=== PATIENT | female | born 2005 | race Caucasian/White ===

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

== ENCOUNTER → 2024-01-26 | Outpatient (CLI) | payer OTHER ==
--- NOTE | 2024-01-27 22:01 | US ---
EXAMINATION TYPE: US OB anatomy transabd DATE OF EXAM: 01/26/2024 COMPARISON: NONE CLINICAL INDICATION: Female, 18 years old with history of Z34.90 ENCNTR FOR SUPRVSN OF NORMAL PREGNAN CY, UNS; Anatomy TECHNIQUE: Transabdominal (TA) EXAM MEASUREMENTS: Pt is unsure of exact due date GESTATIONAL AGE / DATING Physician Established: (23 weeks/5 days) EDC: 05/19/24 Dates by First Scan: No previous this is first scan Dates by Current Scan for: (21 weeks/6 days) EDC: 06/01/24 SURVEY IUP: Single PLACENTA: Anterior PREVIA: No previa VÍCTOR: 14.2 cm Normal CERVICAL LENGTH (transabdominal: norm > 3.0cm): 3.2 cm BIOMETRY PRESENTATION: Vertex LIE: Longitudinal BPD: 5.1 cm 21 weeks / 4 days HC: 19.4 cm 21 weeks / 5 days AC: 17.2 cm 22 weeks / 2 days FL: 3.7 cm 21 weeks / 6 days ESTIMATED WEIGHT IN GRAMS: 462 grams ESTIMATED WEIGHT IN LBS/OZ: 1 lbs. 0 oz. WEIGHT PERCENTAGE BASED ON ESTABLISHED DATE: 2 % HC/AC: 1.13 Normal FL/AC: 22% Normal HEART RATE: 144 bpm RHYTHM: Normal ANATOMY SEEN (within normal limits): * Lateral Vent (< 1 cm) 0.58 cm * Cisterna Magna (< 1.1 cm) 0.25 cm * Nuchal Fold (< 0.6 cm) 0.33 cm * Cerebellum (varies with age) 2.09 cm Choroid Plexus (bilateral) Midline Falx Cavus Septi Pellucidi Four Chamber Heart Outflow tracts: LVOT/RVOT Stomach Situs Nose / Lips Diaphragm Kidneys (bilateral) Bladder Cord Insert Three Vessel Cord Longitudinal Spine Transverse Spine Arms (bilateral) Legs (bilateral) IMPRESSION: 1. Single intrauterine gestation estimated at 21 weeks 6 days gestation. Cardiac activity measures 14 4 bpm.
== END | disposition home or self-care (01) ==
LOC: RADUSWWP 16:11
PROVIDERS: ATTEND Obstetrics & Gynecology
DX: Z34.90 Encounter for supervision of normal pregnancy, unspecified, unspecified trimester (principal)
CPT/HCPCS: 76811

== ENCOUNTER 2024-03-29 20:01 | Emergency (ER) | payer OTHER ==
[2024-03-29 20:07] VITALS: BP 117/64; RESP 18; TEMP 98.2
--- NOTE | 2024-03-29 21:56 | ED ---
General Adult HPI - General Chief complaint: Recheck/Abnormal Lab/Rx Stated complaint: preg 33wks, no taste, body aches Time Seen by Provider: 03/29/24 21:12 Source: patient, RN notes reviewed Mode of arrival: ambulatory Limitations: no limitations - History of Present Illness Initial comments: 18-year-old female presenting to the ED with a chief complaint of loss of taste. Patient reports for the last week has had bodyaches. Today reports loss of taste. Denies cough, congestion, rhinorrhea, sore throat. Also denies abdominal pain, changes in bowel or bladder habits, vaginal discharge, vaginal bleeding. Patient is currently 33 weeks . - Related Data Previous Rx's Medication Instructions Recorded Ondansetron Odt [Zofran Odt] 4 mg PO Q8HR PRN #20 tab 10/18/23 Vit No.179/Iron/Folic 1 each PO DAILY #30 tab 10/18/23 [ Tablet] Allergies Allergy/AdvReac Type Severity Reaction Status Date / Time No Known Allergies Allergy Verified 03/29/24 20:07 Review of Systems ROS Statement: Those systems with pertinent positive or pertinent negative responses have been documented in the HPI. ROS Other: All systems not noted in ROS Statement are negative. Past Medical History Past Medical History: No Reported History History of Any Multi-Drug Resistant Organisms: None Reported Past Surgical History: No Surgical Hx Reported Past Psychological History: Anxiety, Depression Smoking Status: Current every day smoker Past Alcohol Use History: Occasional Past Drug Use History: None Reported General Exam Limitations: no limitations General appearance: alert, in no apparent distress Eye exam: Present: normal appearance Neck exam: Present: normal inspection Respiratory exam: Present: normal lung sounds bilaterally Cardiovascular Exam: Present: regular rate GI/Abdominal exam: Present: soft, normal bowel sounds. Absent: distended, tenderness, guarding, rebound, rigid Neurological exam: Present: alert, oriented X3 Skin exam: Present: warm, dry Course Vital Signs 03/29/24 03/29/24 20:03 21:33 Temperature 98.2 F Pulse Rate 91 Respiratory 18 Rate Blood Pressure 117/64 O2 Sat by Pulse 94 L 99 Oximetry Medical Decision Making - Medical Decision Making Was pt. sent in by a medical professional or institution (, PA, ELECTRICAL [employer] RADIO MECHANIC, urgent care, hospital, or usp...) When possible be specific @ -No Did you speak to anyone other than the patient for history (EMS, parent, family, police, friend...)? What history was obtained from this source @ -No Did you review nursing and triage notes (agree or disagree)? Why? @ -I reviewed and agree with nursing and triage notes Were old charts reviewed (outside hosp., previous admission, EMS record, old EKG, old radiological studies, urgent care reports/EKG's, usp records)? Report findings @ -No old charts were reviewed Differential Diagnosis (chest pain, altered mental status, abdominal pain women, abdominal pain men, vaginal bleeding, weakness, fever, dyspnea, syncope, headache, dizziness, GI bleed, back pain, seizure, CVA, palpatations, mental he alth, musculoskeletal)? @ -Differential Fever: Pneumonia, viral URI, endocarditis, myocarditis, pericarditis, otitis, sinusitis, peritonsillar Abscess, retropharyngeal Abscess, epiglottitis, peritonitis, appendicitis, Jessica cystitis, diverticulitis, hepatitis, colitis, UTI, PID, TOA, pyelonephritis, prostatitis, epididymitis, meningitis, encephalitis, pulmonary embolism, CVA, thyroid storm, pancreatitis, adrenal crisis, cavernous sinus thrombosis, this is not meant to be an all-inclusive list. EKG interpreted by me (3pts min.). @ -None X-rays interpreted by me (1pt min.). @ -None done CT interpreted by me (1pt min.). @ -None done U/S interpreted by me (1pt. min.). @ -None done What testing was considered but not performed or refused? (CT, X-rays, U/S, labs)? Why? @ -Urine sample was considered however patient at this time reports she is asymptomatic for UTI would like to go home. What meds were considered but not given or refused? Why? @ -None Did you discuss the management of the patient with other professionals (professionals i.e. , PA, ELECT[employer]ICAL [employer] RADIO MECHANIC, lab, RT, psych nurse, social insurance analyst, hand quilter, teacher, animal park code enforcement officer, clinical case manager)? Give summary @ -No Was smoking cessation discussed for >3mins.? @ -No Was critical care preformed (if so, how long)? @ -No Were there social determinants of health that impacted care today? How? (Homelessness, low income, unemployed, alcoholism, drug addiction, transportation, low edu. Level, literacy, decrease access to med. care, correction, rehab)? @ -No Was there de-escalation of care discussed even if they declined (Discuss DNR or withdrawal of care, Hospice)? DNR status @ -No What co-morbidities impacted this encounter? (DM, HTN, Smoking, COPD, CAD, Cancer, CVA, ARF, Chemo, Hep., AIDS, mental health diagnosis, sleep apnea, morbid obesity)? @ -None Was patient admitted / discharged? Hospital course, mention meds given and route, prescriptions, significant lab abnormalities, going to OR and other pertinent info. @ -Discharge 33 week 18-year-old female presented to the ED with complaints of decreased/loss of smell onset today with myalgias for the past week. Serology panel unremarkable. UA was to be performed however patient this time reports she is asymptomatic and would not like to do further testing. Discharged home in stable condition for advise close follow-up with her PCP and DIRECTOR OF COUNTERINTELLIGENCE. Discussed tricked return precautions with patient who verbalized Undiagnosed new problem with uncertain prognosis? @ -No Drug Therapy requiring intensive monitoring for toxicity (Heparin, Nitro, Insulin, Cardizem)? @ -No Were any procedures done? @ -No Diagnosis/symptom? @ -Anosmia Acute, or Chronic, or Acute on Chronic? @ -Acute Uncomplicated (without systemic symptoms) or Complicated (systemic symptoms)? @ -Uncomplicated Side effects of treatment? @ -No Exacerbation, Progression, or Severe Exacerbation? @ -No Poses a threat to life or bodily function? How? (Chest pain, [place], [place], pneumonia, PE, COPD, DKA, ARF, appy, cholecystitis, CVA, Diverticulitis, Homicidal, Suicidal, threat to staff... and all critical care pts) @ -No - Lab Data Lab Results 03/29/24 Range/Units 20:12 Influenza Type A (PCR) Not Detected (Not Detectd) Influenza Type B (PCR) Not Detected (Not Detectd) RSV (PCR) Not Detected (Not Detectd) SARS-CoV-2 (PCR) Not Detected (Not Detectd) Disposition Clinical Impression: Anosmia Disposition: HOME SELF-CARE Condition: Good Additional Instructions: Please return to the Emergency Department if symptoms worsen or any other concerns. Please follow-up with your PCP. Is patient prescribed a controlled substance at d/c from ED?: No Referrals: Selam Diego MD [Primary Care Provider] - 1-2 days Time of Disposition: 21:59
[2024-03-29 22:01] VITALS: PULSE 67
== END 2024-03-29 22:02 | disposition home or self-care (01) ==
LOC: EC 20:01
DX: O26.893 Other specified pregnancy related conditions, third trimester (principal); R43.0 Anosmia; O99.333 Smoking (tobacco) complicating pregnancy, third trimester; F17.200 Nicotine dependence, unspecified, uncomplicated; Z3A.33 33 weeks gestation of pregnancy
CPT/HCPCS: 87636; 99283

== ENCOUNTER → 2024-04-28 | Outpatient (CLI) | payer OTHER ==
--- NOTE | 2024-04-28 09:07 | US ---
EXAMINATION TYPE: US OB >= 14 wk fetus DATE OF EXAM: 04/28/2024 COMPARISON: OB Anatomy CLINICAL INDICATION: Female, 19 years old with history of Z34.90 ENCNTR FOR SUPRVSN OF NORMAL PREGNAN CY; Growth TECHNIQUE: Transabdominal (TA) GESTATIONAL AGE / DATING Physician Established: ( weeks/ days) EDC: Dates by LMP: LMP unknown Dates by First Scan: (23 weeks/5 days) EDC: 05/19/24 Dates by Current Scan: (36 weeks/6 days) EDC: 05/20/24 Beta HCG (if available): SURVEY IUP: Single PLACENTA: Anterior PREVIA: No Previa VÍCTOR: 12.92 cm Normal CERVICAL LENGTH (transabdominal: norm > 3.0cm): 3.1 cm BIOMETRY PRESENTATION: Vertex LIE: Longitudinal BPD: 8.99 cm 36 weeks / 3 days HC: 32.56 cm 37 weeks / 0 days AC: 33.49 cm 37 weeks / 3 days FL: 7.04 cm 36 weeks / 1 days ESTIMATED WEIGHT IN GRAMS: 3066 grams ESTIMATED WEIGHT IN LBS/OZ: 6 lbs. 12 oz. WEIGHT PERCENTAGE BASED ON ESTABLISHED DATES: 42% HC/AC: 0.97 Normal FL/AC: 21% Normal HEART RATE: 160 bpm RHYTHM: Normal IMPRESSION: 1. Single intrauterine gestation estimated at 36 weeks 6 days gestation based on the current ultrasou nd measurements. Cardiac activity measuring 1 60 bpm was observed during the study. 2. Estimated weight is 3066 g based on current measurements.
== END | disposition home or self-care (01) ==
LOC: RADUSWWP 08:12
PROVIDERS: ATTEND Obstetrics & Gynecology
DX: Z34.93 Encounter for supervision of normal pregnancy, unspecified, third trimester (principal); Z3A.36 36 weeks gestation of pregnancy
CPT/HCPCS: 76805